=== PATIENT | male | born 1970 | race Caucasian/White ===

== ENCOUNTER 2019-10-15 20:46 | Observation (INO) | payer OTHER, SELFPAY ==
--- NOTE | ~2019-10-15 | XR_ITS ---
EXAMINATION: XR chest 2V DATE: 10/15/2019 21:36 INDICATION: Left-sided chest pain TECHNIQUE: PA and lateral views of the chest are obtained. COMPARISON: None available FINDINGS: The lungs are free of acute opacities. There is no pleural effusion or pneumothorax. The ca rdiomediastinal silhouette is normal. The visualized bones and soft tissues are unremarkable. IMPRESSION: 1. No acute cardiopulmonary abnormality. Reviewed, dictated and finalized at location A.
[2019-10-15 20:57] VITALS: BP 179/97; PULSE 72; RESP 16; TEMP 36.1; O2SAT 99
--- NOTE | 2019-10-15 21:10 | ED.CHESTPAIN ---
HPI - Chest Pain General Chief Complaint: Chest Pain Stated Complaint: CP Time Seen by Provider: 10/15/19 20:52 Source: patient Mode of arrival: ambulatory Limitations: no limitations History of Present Illness HPI narrative: Pt is a 48 y/o male who presents to the ED with c/o sudden onset, intermittent, lt chest pain that started last night. Pt states that last night he started having lt shoulder blade pain so he put on his tens unit that temporarily relieved his pain and then his pain started radiating to his lt arm and lt chest. He notes that he started getting SOB and he felt like he could not catch his breath. He states that the pain lasted for 30-45 minutes. His pain was alleviated when he got up and was pacing around and his pain was aggravated when he laid down. He also states that his lt arm pain worsened with movement. Tonight his lt CP started about an hour ago and it lasted for 30 minutes. He reports breathing heavy, but denies chills, sweats, or a cough. He states that he took Tylenol PM last night and Advil today at lunch. Pt denies recent long travel, H/o blood clots, or H/o [place]. He also denies a FHx of heart disease. 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 He notes that work has been stressful for the last couple of months. MD complaint: chest pain Onset (ago): day(s) (last night) Timing of current episode: episodic Onset: during rest Pain location: left chest Pain radiation: left arm Relieving factors: movement Exacerbating factors: other (rest) Associated symptoms: dyspnea Related Data Home Medications Medication Instructions Recorded Confirmed No Home Medications 10/15/19 10/15/19 Allergies Allergy/AdvReac Type Severity Reaction Status Date / Time No Known Allergies Allergy Verified 10/16/19 00:11 Review of Systems Review of Systems: All systems reviewed & are unremarkable except as noted in HPI and below Constitutional: Constitutional: Denies chills, Reports fever(s) and Denies other (sweats) Cardiovascular: Cardiovascular: Reports chest pain (lt) Respiratory: Respiratory: Denies cough and Reports dyspnea Musculoskeletal: Musculoskeletal: Reports other (lt shoulder blade pain, lt arm pain) Psychiatric: Psychiatric: Reports other (stressed from work) [facility] Past Medical History Medical History (Updated 10/16/19 @ 04:32 by Tien Pearce MD) HLD (hyperlipidemia) Surgical History Surgical History (Updated 10/15/19 @ 21:26 by Krysten Gonzalez) H/O colonoscopy H/O hernia repair Family History Family History (Updated 10/16/19 @ 00:25 by aDnna Galloway, MICHELLE) Father Colon cancer Social History Social History (Updated 10/15/19 @ 21:26 by Krysten Gonzalez) Years smoked: 8 Smoking status: Former smoker Alcohol intake: current Drinks per week: 5 Substance use: never Agree to blood products: Yes Comments Pt's PCP is Dr. Wiliam Varela Exam Narrative: Exam Narrative: GENERAL: Well-appearing, well-nourished, and in no acute distress. HEAD: Normocephalic, atraumatic. ENT: Mucous membranes moist. No pharyngeal erythema or tonsillar exudate. CHEST: Clear to auscultation. No respiratory distress. HEART: Regular rate and rhythm. No murmur heard. Normal peripheral pulses. ABDOMEN: Soft, nontender, nondistended. Back: No midline tenderness thoracic lumbar spine. Left paraspinal tenderness in between the scapula and midline over the rhombus. EXTREMITIES: Normal range of motion. No edema. SKIN: Warm, dry, no rash. NEURO: Alert and oriented x3. Course Consultations Consultation #1: Discussed case with Dr. Wolf, the music rehabilitation therapist. Recommends admission NPO at midnight and serial Troponin checks. Plans to do a stress test tomorrow unless Troponin increases and at that point they will cath him. He does not recommend heparinization unless the Troponin elevates. Date: 10/15/19 Time: 22:45 Vital Signs Vital signs: Vital Signs Temperature
--- NOTE | 2019-10-15 21:20 | ECG_ITS ---
Measurements Intervals [place] Rate: 74 P: 52 [place]: 162 QRS: 0 QRSD: 98 T: 13 QT: 375 QTc: 418 Interpretive Statements SINUS RHYTHM VOLTAGE CRITERIA FOR LVH BORDERLINE ECG Electronically Signed On 10-16-2019 7:05:28 CDT by Tristen Scott D.O.
--- NOTE | 2019-10-15 21:34 | PC.NURSE ---
pt to xray at this time
[2019-10-15] MEDS: KETOROLAC 30 MG/ML VIAL (*BKC) IV PUSH (21:46)
[2019-10-15 21:49] LABS: Basophils Percent Auto 0.4 % (0.2-1.2); Eosinophils Percent Auto 0.5 % (0-4.4); Hematocrit 39.7 % (42.0-52.0); Immature Granulocyte Absolute 0.01 K/mm3 (0.00-0.031); Immature Granulocyte Percent A 0.2 % (0-0.5); Lymphocytes Percent Auto 21.2 % (18.3-44.2); Mean Corpuscular HGB Conc 35.3 g/dl (32-36); Mean Corpuscular Hemoglobin 31.9 pg (26-34); Mean Corpuscular Volume 90.4 fl (80-100); Mean Platelet Volume 9.5 fl (7.4-10.4); Monocytes Absolute Auto 0.3 K/mm3 (0.1-0.6); Monocytes Percent Auto 5.7 % (2.6-8.5); Neutrophils Absolute Auto 4.1 K/mm3 (1.3-6.7); Platelet Count Result 242 k/mm3 (150-375); Red Blood Count 4.39 M/mm3 (4.6-6.20); Red Cell Distribution Width 12.7 % (11.5-14.5); White Blood Count 5.7 K/mm3 (4.5-10.0)
[2019-10-15 21:55] VITALS: BP 144/82; PULSE 70; RESP 16; O2SAT 98
[2019-10-15 21:58] LABS: Prothrombin Time 12.7 Seconds (11.1-14.7)
[2019-10-15 21:59] LABS: Partial Thromboplastin Time 26.7 SECONDS (22.3-36.8)
[2019-10-15 22:00] LABS: Blood Urea Nitrogen 14 mg/dL (9-20); Calcium 8.9 mg/dL (8.4-10.2); Carbon Dioxide 27 mmol/L (22-30); Chloride 105 mmol/L (98-107); Estimated CRCL calculation 78 ml/min; Estimated Glomerular Filt Rate > 60; Glucose 146 mg/dL (75-110); Potassium 3.8 mmol/L (3.4-5.0); Sodium 137 mmol/L (137-145)
[2019-10-15 22:14] LABS: Troponin I 0.041 ng/mL (0.000-0.034)
[2019-10-15 22:48] VITALS: BP 137/77; PULSE 70; RESP 15; O2SAT 98
[2019-10-15 23:41] VITALS: BP 143/81; PULSE 66; RESP 16; O2SAT 99
[2019-10-15 23:55] VITALS: BP 149/76; PULSE 60; RESP 18; TEMP 36.3; O2SAT 95; BMI 28.5
--- NOTE | 2019-10-15 23:55 | ADMGEN ---
This patient, Nacho Soto, was admitted to IMU Room 200-01. Patient/family oriented to hospital policies and general routines including ID bracelet, bed and alarms, visiting hours, pain management, procedures, bathroom and other care routines, personal items, smoking policy, room service/diet, and visiting hours. Valuables list has been completed. Information on how to activate the Rapid Response Team has been discussed. Patient/Family are encouraged to report perceived risks to care and to ask questions if they do not understand what they are told or what they should do.
[2019-10-16] VITALS (20 sets, daily range): BP systolic 126–151; BP diastolic 77–98; PULSE 55–78; RESP 10–18; TEMP 36.1–36.6; O2SAT 96–100
[2019-10-16 01:25] LABS: Troponin I 0.058 ng/mL (0.000-0.034)
[2019-10-16 05:29] LABS: Troponin I 0.052 ng/mL (0.000-0.034)
--- NOTE | 2019-10-16 09:00 | EST_ITS ---
Patient Info Name: Nacho Soto Age: 48 years : 1970 Gender: Male Ht: 66 in Wt: 169 lbs BSA: 1.91 m2 Exam Date: 10/16/2019 10:14 AM Exam Location: [facility] Pulmonary Patient Status: Outpatient Admit Date: 10/15/2019 Staff Ordering Physician: Leslie Wolf MD (sherrie/teresa) Medical Records Auditor: Leonardo Carter RDCS RT Attending Provider: dr. wolf Exercise Technologist: Leonardo Carter RDCS, RT Exam Type: CA stress echo Study Info Indications R07.89 - Other chest pain Treadmill exercise stress echocardiogram is performed. Summary 1. patient exercise on jarod protocol for 10 minutes and 53 second achieving 12 METS Heart rate was 56 at rest and increased to 153 at peak stress which was 86% of max predicted heart rate. BP was 160/92 at rest and increased to 225/79 at peak exercise. EKG showed normal sinus rhythm at rest. At peak exercise EKG showed sinus tachycardia with borderline ST depression in lead II,AVF. At rest 2D echoimages showed normal LV function with EF of 50%. At peak exercise EF improved overall but spetal hypokinesis/dyskinesis noted. Summary: Positive stress test with new wall motion abnomlaity noted in the anterioseptal wall at peak exercise. Exagerrated hypertension response to exercise. Good exercise capacity. Protocol: Jarod Stress ECG Details Stage: REST Duration (min): 15 min : 26 sec Speed (mph): 0.0 Grade (%): 0 HR (bpm): 58 SBP (mmHg): 149 DBP (mmHg): 92 METS: --- Stage: REST Duration (min): 31 min : 21 sec Speed (mph): 0.0 Grade (%): 0 HR (bpm): 74 SBP (mmHg): 149 DBP (mmHg): 92 METS: --- Stage: STAGE 1 Duration (min): 1 min : 0 sec Speed (mph): 1.7 Grade (%): 10 HR (bpm): 90 SBP (mmHg): 149 DBP (mmHg): 92 METS: --- Stage: STAGE 1 Duration (min): 2 min : 0 sec Speed (mph): 1.7 Grade (%): 10 HR (bpm): 99 SBP (mmHg): 149 DBP (mmHg): 92 METS: --- Stage: STAGE 1 Duration (min): 3 min : 0 sec Speed (mph): 1.7 Grade (%): 10 HR (bpm): 101 SBP (mmHg): 160 DBP (mmHg): 92 METS: --- Stage: STAGE 2 Duration (min): 1 min : 0 sec Speed (mph): 2.5 Grade (%): 12 HR (bpm): 112 SBP (mmHg): 160 DBP (mmHg): 92 METS: --- Stage: STAGE 2 Duration (min): 2 min : 0 sec Speed (mph): 2.5 Grade (%): 12 HR (bpm): 110 SBP (mmHg): 164 DBP (mmHg): 92 METS: --- Stage: STAGE 2 Duration (min): 3 min : 0 sec Speed (mph): 2.5 Grade (%): 12 HR (bpm): 118 SBP (mmHg): 164 DBP (mmHg): 92 METS: --- Stage: STAGE 3 Duration (min): 1 min : 0 sec Speed (mph): 3.4 Grade (%): 14 HR (bpm): 125 SBP (mmHg): 204 DBP (mmHg): 69 METS: --- Stage: STAGE 3 Duration (min): 2 min : 0 sec Speed (mph): 3.4 Grade (%): 14 HR (bpm): 135 SBP (mmHg): 204 DBP (mmHg): 69 METS: --- Stage: STAGE 3 Duration (min): 3 min : 0 sec Speed (mph): 3.4 Grade (%): 14 HR (bpm): 136
--- NOTE | 2019-10-16 09:08 | PM.IMHP ---
H&P: HPI History of Present Illness Chief complaint: NSTEMI Narrative: Nacho Soto is a 48 year old male with no cardiac or significant medical history, not on any medications who presented with 2 episodes of chest pain. had episode of chest pain yesterday morning. lasting for 30 minutes, felt like sharp pain to the left side of chest that is worse when he moves his left arm. He had another similar episode last night when decided to seek medical attention. No associated dyspnea or nausea. No dizziness, lightheadedness or syncope. Quit smoking at age 22. Parents alive and healthy/ Review of Systems Review of Systems: All systems reviewed & are unremarkable except as noted in HPI and below Constitutional: Constitutional: Denies fatigue and Denies headache(s) Eyes: Eyes: Denies blurry vision ENT: Reports Normal hearing present and Denies headache(s) Cardiovascular: Cardiovascular: Denies chest pain, Denies diaphoresis, Denies pedal edema, Denies leg edema, Denies lightheadedness, Denies palpitations and Denies dyspnea Respiratory: Respiratory: Denies cough and Denies dyspnea Gastrointestinal: Gastrointestinal: Denies abdominal pain Musculoskeletal: Musculoskeletal: Denies back pain Neurologic: Reports Normal hearing present and Denies headache(s) Psychiatric: Psychiatric: Denies anxiety Endocrine: Endocrine: Denies fatigue and Denies palpitations PMFSH Past Medical History Medical History (Updated 10/16/19 @ 10:21 by Leslie Wolf MD) HLD (hyperlipidemia) Surgical History Surgical History (Updated 10/15/19 @ 21:26 by Krysten Gonzalez) H/O colonoscopy H/O hernia repair Family History Family History (Updated 10/16/19 @ 00:25 by Danna Galloway RN) Father Colon cancer Social History Social History (Updated 10/15/19 @ 21:26 by Krysten Gonzalez) Years smoked: 8 Smoking status: Former smoker Alcohol intake: current Drinks per week: 5 Substance use: never Agree to blood products: Yes Meds Home Medications and Allergies Home Medications Medication Instructions Recorded Confirmed Type No Home Medications 10/15/19 10/15/19 History Allergies Allergy/AdvReac Type Severity Reaction Status Date / Time No Known Allergies Allergy Verified 10/16/19 00:11 Vital Signs Vital Signs - 24 hr 10/15/19 20:57 10/15/19 21:55 10/15/19 22:48 Temperature 36.1 C L Pulse Rate 72 70 70 Respiratory Rate 16 16 15 Blood Pressure 179/97 H 144/82 H 137/77 Pulse Oximetry 99 98 98 10/15/19 23:41 10/15/19 23:55 10/16/19 00:00 Temperature 36.3 C L Pulse Rate 66 60 64 Respiratory Rate 16 18 Blood Pressure 143/81 H 149/76 H Pulse Oximetry 99 95 10/16/19 02:00 10/16/19 03:59 10/16/19 04:00 Temperature 36.6 C Pulse Rate 60 58 L 57 L Respiratory Rate 16 Blood Pressure 151/88 H Pulse Oximetry 100 10/16/19 06:00 10/16/19 08:00 Temperature 36.1 C L Pulse Rate 56 L 57 L Respiratory Rate 16 Blood Pressure 151/89 H Pulse Oximetry 99 Exam Const: General: no acute distress Eyes: Sclera: sclerae normal Neck: Neck: no JVD Carotids: no bruits Resp: Effort & Inspection: normal respiratory effort Auscultation: clear to auscultation bilaterally Cardio: Rate: regular rate and not tachycardic Rhythm: regular rhythm Heart sounds: no gallops, no murmurs and no rubs GI: GI Palp: Yes Soft to palpation and No Tenderness to palpation present (GI) Skin: General skin exam: normal color Neuro: Cranial nerves: Yes Normal hearing present Speech: normal speech Extrem: General: normal to inspection and no edema Psych: Affect: normal affect H&P: Results Labs Labs: Short CBC 10/15/19 Range/Units 21:44 WBC 5.7 (4.5-10.0) K/mm3 Hgb 14.0 (14.0-18.0) g/dL Hct 39.7 L (42.0-52.0) % Plt Count 242 (150-375) k/mm3 BMP 10/15/19 21:44 Sodium 137 Potassium 3.8 Chloride 105 Carbon Dioxide 27 BUN 14 Creatinine 0.9
--- NOTE | 2019-10-16 13:06 | WPDMODSED ---
Moderate Sedation Note-Pt Data Patient Data Allergies Allergy/AdvReac Type Severity Reaction Status Date / Time No Known Allergies Allergy Verified 10/16/19 00:11 Home Medications Medication Instructions Recorded Confirmed Type No Home Medications 10/15/19 10/15/19 History Current Medications: Active Medications Acetaminophen (Tylenol Tablet) 650 mg PO Q4H PRN PRN Reason: Mild Pain (1-3) or Fever Hydrocodone Bitart/Acetaminophen ([place] 5-325 Mg) 1 tab PO Q4H PRN PRN Reason: Pain Rated 4-6 Morphine Sulfate (Morphine Sulfate Inj) 4 mg IV PUSH Q2H PRN PRN Reason: Pain Rated 7-10 Nitroglycerin (Nitrostat Subl 0.4 Mg (1/150)) 0.4 mg SUBLINGUAL Q5MIN PRN PRN Reason: Chest Pain Ondansetron HCl (Zofran Inj) 4 mg IV PUSH Q4H PRN PRN Reason: Nausea Sedation/Anesthesia: No previous sedation/anesthesia problems (including family history). PMFSH Past Medical History Medical History (Updated 10/16/19 @ 10:21 by Leslie Wolf MD) HLD (hyperlipidemia) Surgical History Surgical History (Updated 10/15/19 @ 21:26 by Krysten Gonzalez) H/O colonoscopy H/O hernia repair Family History Family History (Updated 10/16/19 @ 00:25 by Danna Galloway RN) Father Colon cancer Social History Social History (Updated 10/15/19 @ 21:26 by Krysten Gonzalez) Years smoked: 8 Smoking status: Former smoker Alcohol intake: current Drinks per week: 5 Substance use: never Agree to blood products: Yes Mod Sed Physical Exam Physical Exam Pre Procedural Exam: Normal: Appearance, Eyes, Ears, Nose, Neck, Throat, Airway, Lungs, Heart Size, Heart Rate, Heart Rhythm, Neuro Exam, Abdomen, Liver, Kidneys, Spleen, Breasts, Genitalia, Extremities and Skin Hours since solid foods: 8 Hours since liquid intake: 8 Internal Medicine - PN: Obj Da Vital Signs Vital Signs: Vital Signs - 24 hr 10/15/19 20:57 10/15/19 21:55 10/15/19 22:48 Temperature 36.1 C L Pulse Rate 72 70 70 Respiratory Rate 16 16 15 Blood Pressure 179/97 H 144/82 H 137/77 Pulse Oximetry 99 98 98 10/15/19 23:41 10/15/19 23:55 10/16/19 00:00 Temperature 36.3 C L Pulse Rate 66 60 64 Respiratory Rate 16 18 Blood Pressure 143/81 H 149/76 H Pulse Oximetry 99 95 10/16/19 02:00 10/16/19 03:59 10/16/19 04:00 Temperature 36.6 C Pulse Rate 60 58 L 57 L Respiratory Rate 16 Blood Pressure 151/88 H Pulse Oximetry 100 10/16/19 06:00 10/16/19 08:00 10/16/19 10:00 Temperature 36.1 C L Pulse Rate 56 L 57 L 60 Respiratory Rate 16 Blood Pressure 151/89 H Pulse Oximetry 99 10/16/19 12:00 Temperature 36.2 C L Pulse Rate 67 Respiratory Rate 16 Blood Pressure 145/87 H Pulse Oximetry 99 Intake/Output Intake/Output: Intake & Output 10/13/19 10/14/19 10/15/19 10/16/19 23:59 23:59 23:59 23:59 Output Total 450 Balance -450 Meds/Results Medications: Active Medications Generic Name Dose Route Start Last Admin Trade Name Freq PRN Reason Stop Dose Admin Acetaminophen 650 mg 10/15/19 22:48 Tylenol Tablet PO Q4H PRN Mild Pain (1-3) or Fever Hydrocodone Bitart/Acetaminophen 1 tab 10/15/19 22:48 [place] 5-325 Mg PO Q4H PRN Pain Rated 4-6 Morphine Sulfate 4 mg 10/15/19 22:48 Morphine Sulfate Inj IV PUSH Q2H PRN Pain Rated 7-10 Nitroglycerin 0.4 mg 10/15/19 22:48 Nitrostat Subl 0.4 Mg (1/150) SUBLINGUAL Q5MIN PRN Chest Pain Ondansetron HCl 4 mg 10/15/19 22:48 Zofran Inj IV PUSH Q4H PRN Nausea Radiology Results: ITS Impressions Chest X-Ray 10/15/19 21:39 IMPRESSION: 1. No acute cardiopulmonary abnormality. Labs CBC & Chem 7: 10/15/19 21:44 10/15/19 21:44 Labs: Laboratory Results - last 24 hr 10/15/19 10/15/19 10/15/19 21:44 21:44 21:44 WBC 5.7 RBC 4.39 L Hgb 14.0 Hct 39.7 L MCV 90.4 MCH 31.9 MCHC 35.3 RDW 12.7 Plt Count 242
--- NOTE | 2019-10-16 14:05 | P.PCNCC_ITS ---
Cardiac Cath Procedure Note Date of procedure:: 10/16/19 Performing physician:: Jamey Sosa MD Procedure: 1. Left heart catheterization, selective coronary angiogram. 2. Left ventricular angiogram. 3. Angio-Seal device application for arterial hemostasis 4. Conscious sedation, starting time is 1:16 p.m. ending time is 1:38 p.m. Account Associate: Dr. Jamey Sosa Complications: None. Sedation: Conscious sedation, local anesthesia, using 1 mg of Versed said, 25 mcg of fentanyl, and using 1% lidocaine for local anesthesia. Technique: After informed consent was obtained from patient, was brought to the clinical laboratory service teacher, put in the clinical laboratory service teacher table, prepped and draped in usual sterile fashion. Five Cymro sheath was inserted into the right common femoral artery, through the sheath 5 Cymro JL4 catheter inserted, advanced to the left coronary artery, left coronary artery angiogram was obtained. The catheter was exchanged over guidewire into a 5 Cymro JR4 catheter, advanced to the right coronary artery, right coronary artery angiogram was obtained. The catheter then was exchanged over guidewire into this 5 Cymro pigtail catheter, advanced to left ventricle, left ventricular angiogram was obtained. The catheter then was pulled, the sheath was pulled applying manual pressure for arterial hemostasis. Patient tolerated the procedure no complication, taken from the clinical laboratory service teacher to his room in stable condition stable vital signs. Hemodynamics: aortic pressure 124/60 . LV pressure 124/04 with LVEDP of 24 mmHg Angiographic findings: Left main: Medium size artery no significant disease or stenosis. Lad medium size artery showed mid LAD 50-60% narrowing, with 1st diagonal branch is a large caliber vessel with ostial 90% disease followed by bifurcation 90% lesions Left circumflex artery, medium size artery, mid circumflex 60% disease, there is AV circ which is small branch disease but has 90% ostial disease RCA: Dominant vessel showed mid RCA 99% discrete lesion LV: Normal size left ventricle with normal left ventricular systolic function. Summary: Three-vessel complex coronary disease with disease of the LAD circumflex and RCA, with normal left ventricular systolic function Recommendation: Due to the complexity of the lesions in the LAD, and the lesion in the RCA he will benefit from coronary bypass surgery with LOPEZ to LAD saphenous venous graft to diagonal 1 and its branch, venous graft to obtuse marginal, AV circ and venous graft to distal RCA.
--- NOTE | 2019-10-16 14:55 | PM.DS ---
DS: Diagnosis Admitting Diagnosis Admitting Diagnosis: Non ST-elevation myocardial infarction Coronary artery disease Discharge Diagnosis (1) Chest pain: Code(s): R07.9 - Chest pain, unspecified Status: Acute Assessment and Plan: He underwent cardiac catheterization with 3 vessel coronary disease, he will be transferred to [facility] for coronary bypass surgery DS: Summary Time Spent with Patient Time attestation: Total time spent providing and/or coordinating discharge services: Exam Const: General: no acute distress Eyes: Sclera: sclerae normal Neck: Neck: no JVD Carotids: no bruits Resp: Effort & Inspection: normal respiratory effort Auscultation: clear to auscultation bilaterally Cardio: Rate: regular rate and not tachycardic Rhythm: regular rhythm Heart sounds: no gallops, no murmurs and no rubs Skin: General skin exam: normal color Neuro: Cranial nerves: Yes Normal hearing present Speech: normal speech Extrem: General: normal to inspection and no edema Psych: Affect: normal affect DS: Data Data Completed and Pending Labs on day of discharge: Labs from last 24 hours 10/16/19 10/16/19 10/15/19 03:49 00:43 21:44 WBC RBC Hgb Hct MCV MCH MCHC RDW Plt Count MPV Immature Gran % (Auto) Neut % (Auto) Lymph % (Auto) [place] % (Auto) Eos % (Auto) Baso % (Auto) Lymph # (Auto) [place] # (Auto) Eos # (Auto) Baso # (Auto) Abs Immat Gran (auto) Absolute Neuts (auto) Absolute Nucleated RBC Nucleated RBC % PT INR APTT Sodium 137 Potassium 3.8 Chloride 105 Carbon Dioxide 27 BUN 14 Creatinine 0.90 Estim Creat Clear Calc 78 Estimated GFR > 60 Glucose 146 H Calcium 8.9 Troponin I 0.052 H* 0.058 H* D 0.041 H* 10/15/19 10/15/19 21:44 21:44 WBC 5.7 RBC 4.39 L Hgb 14.0 Hct 39.7 L MCV 90.4 MCH 31.9 MCHC 35.3 RDW 12.7 Plt Count 242 MPV 9.5 Immature Gran % (Auto) 0.2 Neut % (Auto) 72.0 Lymph % (Auto) 21.2 [place] % (Auto) 5.7 Eos % (Auto) 0.5 Baso % (Auto) 0.4 Lymph # (Auto) 1.20 [place] # (Auto) 0.3 Eos # (Auto) 0.0 Baso # (Auto) 0.0 Abs Immat Gran (auto) 0.01 Absolute Neuts (auto) 4.1 Absolute Nucleated RBC 0.0 Nucleated RBC % 0.0 PT 12.7 INR 1.0 APTT 26.7 Sodium Potassium Chloride Carbon Dioxide BUN Creatinine Estim Creat Clear Calc Estimated GFR Glucose Calcium Troponin I Discharge Plan Discharge Consulting providers: Jamey Sosa Discharging Clinician: Jamey Sosa Patient Disposition: Other Activity: no straining Diet: heart healthy Patient Instructions: Antibiotic Form Stand Alone Forms: General Discharge Information Discharge Medications: Continued No Home Medications RF: 0 Date of admission: 10/15/19 22:48 Primary Care Provider: UNKNOWN,DOCTOR Admitting Provider: Leslie Wolf Attending physician on admission: Leslie Wolf Condition: Stable Quality VTE Prophylaxis VTE prophylaxis: pharmacologic ordered (Currently on Lovenox 1 milligram/kilogram for AFib/RVR.)
[2019-10-16] MEDS: ASPIRIN 325 MG TABLET PO (17:40)
[2019-10-16] MEDS: METOPROLOL SUCCINATE EXT REL 25 MG TABCR PO (17:40)
[2019-10-16] MEDS: ROSUVASTATIN 10 MG TABLET PO (17:40)
[2019-10-16] MEDS: SODIUM CHLORIDE 0.9% IV 1,000 ML 125 ML IV CONT (17:40)
[2019-10-16] MEDS: ACETAMINOPHEN 325 MG TABLET 650 MG PO (17:46)
[2019-10-16 19:09] LABS: Basophils Percent Auto 0.4 % (0.2-1.2); Eosinophils Percent Auto 0.7 % (0-4.4); Hematocrit 37.6 % (42.0-52.0); Hemoglobin 12.9 g/dL (14.0-18.0); Immature Granulocyte Absolute 0.01 K/mm3 (0.00-0.031); Immature Granulocyte Percent A 0.2 % (0-0.5); Lymphocytes Absolute Auto 1.28 K/mm3 (0.9-3.2); Lymphocytes Percent Auto 23.1 % (18.3-44.2); Mean Corpuscular HGB Conc 34.3 g/dl (32-36); Mean Corpuscular Hemoglobin 31.5 pg (26-34); Mean Corpuscular Volume 91.7 fl (80-100); Mean Platelet Volume 9.5 fl (7.4-10.4); Monocytes Absolute Auto 0.4 K/mm3 (0.1-0.6); Monocytes Percent Auto 6.5 % (2.6-8.5); Neutrophils Absolute Auto 3.8 K/mm3 (1.3-6.7); Neutrophils Percent Auto 69.1 % (45.5-73.1); Platelet Count Result 208 k/mm3 (150-375); White Blood Count 5.5 K/mm3 (4.5-10.0)
[2019-10-16 19:17] LABS: INR 1.1; Prothrombin Time 13.5 Seconds (11.1-14.7)
[2019-10-16 19:18] LABS: Partial Thromboplastin Time 27.7 SECONDS (22.3-36.8)
== END 2019-10-16 20:13 | disposition short-term general hospital (02) ==
LOC: ANHED 22:50 → ANHIMU 23:14
PROVIDERS: Admitting Provider Internal Medicine; Emergency Provider Emergency Medicine; Visit Provider Specialist
PROC: 4A023N7 Measurement of Cardiac Sampling and Pressure, Left Heart, Percutaneous Approach (ICD-10-PCS; CPT 93452; principal; 2019-10-16 12:30)
DX: I21.4 Non-ST elevation (NSTEMI) myocardial infarction (principal); I25.10 Atherosclerotic heart disease of native coronary artery without angina pectoris; E78.5 Hyperlipidemia, unspecified; Z87.891 Personal history of nicotine dependence
CPT/HCPCS: 36415; 71046; 80048; 84484; 85025; 85610; 85730; 93005; 93351; 93458; 96360; 96361; 96374; 99285; A9270; C1760; C1887; C1894; G0269; G0378; J1644; J1885; J2250; J3010; J7030; J7040

== ENCOUNTER 2022-06-02 20:22 | Emergency (ER) | payer OTHER, SELFPAY ==
--- NOTE | ~2022-06-02 | XR_ITS ---
EXAMINATION: XR chest 2V Exam Date/Time: 06/02/2022 20:40 CDT HISTORY: cp Comparison: 10/15/2019. RESULT: Lines, tubes, and devices: None. Lungs and pleura: Clear. Cardiomediastinal silhouette: Stable. Other: No acute osseous or upper abdominal finding. IMPRESSION: No acute cardiopulmonary process. Reviewed, dictated and finalized at location K.
--- NOTE | 2022-06-02 20:25 | ECG_ITS ---
Measurements Intervals [place] Rate: 65 P: 31 [place]: 170 QRS: 9 QRSD: 93 T: 23 QT: 392 QTc: 409 Interpretive Statements SINUS RHYTHM BASELINE ARTIFACT- I, III, AVR, AVL, AVF, V1 NORMAL ECG COMPARED TO ECG 10/15/2019 20:53:34 NO SIGNIFICANT CHANGES Electronically Signed On 06-03-2022 6:36:10 CDT by Tristen Scott D.O.
[2022-06-02 20:27] VITALS: BP 132/94; PULSE 67; RESP 16; TEMP 37; O2SAT 98
[2022-06-02 20:33] VITALS: PULSE 68
[2022-06-02 20:53] LABS: Basophils Percent Auto 0.3 % (0.2-1.2); Eosinophils Absolute Auto 0.1 K/mm3 (0-0.3); Hematocrit 41.5 % (42.0-52.0); Hemoglobin 14.2 g/dL (14.0-18.0); Immature Granulocyte Absolute 0.01 K/mm3 (0.00-0.031); Immature Granulocyte Percent A 0.2 % (0-0.5); Immature Platelet Fraction Pct 2.7 % (0.9-11.2); Lymphocytes Absolute Auto 1.41 K/mm3 (0.9-3.2); Lymphocytes Percent Auto 23.2 % (18.3-44.2); Mean Corpuscular HGB Conc 34.2 g/dl (32-36); Mean Corpuscular Hemoglobin 31.9 pg (26-34); Mean Corpuscular Volume 93.3 fl (80-100); Mean Platelet Volume 10.3 fl (7.4-10.4); Monocytes Absolute Auto 0.4 K/mm3 (0.1-0.6); Monocytes Percent Auto 7.1 % (2.6-8.5); Neutrophils Absolute Auto 4.2 K/mm3 (1.3-6.7); Neutrophils Percent Auto 68.2 % (45.5-73.1); Platelet Count Result 280 k/mm3 (150-375); Red Blood Count 4.45 M/mm3 (4.6-6.20); Red Cell Distribution Width 13.2 % (11.5-14.5); White Blood Count 6.1 K/mm3 (4.5-10.0)
[2022-06-02 21:03] LABS: Alanine Aminotransferase 32 U/L (6-50); Albumin Level 4.7 g/dL (3.5-5.1); Alkaline Phosphatase 84 U/L (38-126); Anion Gap 9 mmol/L (8-16); Aspartate Amino Transferase 28 U/L (17-59); Bilirubin,Total 0.5 mg/dL (0.2-1.3); Blood Urea Nitrogen 14 mg/dL (9-20); Calcium 9.1 mg/dL (8.4-10.2); Carbon Dioxide 26 mmol/L (22-30); Chloride 103 mmol/L (98-107); Estimated CRCL calculation 62 ml/min; Estimated Glomerular Filt Rate > 60; Glucose 116 mg/dL (65-110); Lipase 93 U/L (23-300); Potassium 3.9 mmol/L (3.4-5.0); Sodium 138 mmol/L (137-145)
[2022-06-02] MEDS: ASPIRIN 81 MG CHEWABLE TABLET 324 MG PO (21:08)
[2022-06-02 21:15] LABS: Troponin I < 0.012 ng/mL (0.000-0.034)
[2022-06-02 21:16] LABS: INR 1.1; Prothrombin Time 14.1 Seconds (11.1-14.7)
[2022-06-02 21:17] LABS: Partial Thromboplastin Time 28.6 SECONDS (22.3-36.8)
--- NOTE | 2022-06-02 22:21 | ED.CHESTPAIN ---
HPI - Chest Pain General Chief Complaint: Chest Pain Stated Complaint: chest pain Time Seen by Provider: 06/02/22 20:30 History of Present Illness HPI narrative: Patient is a 51-year-old male who comes into the ER with concerns of tingling in his hands bilaterally. Ongoing over the last week. It wakes him up at night. He has felt it going up into his forearms and into his left shoulder. No chest pain or chest pressure but has been concerned about his heart given the fact that he has had a stent previously. Not associated with exertion. No sweats or nausea or vomiting. Patient works in IT. Has not noticed any alleviating factors. Related Data Home Medications Medication Instructions Recorded Confirmed aspirin 81 mg tablet mg PO 06/02/22 losartan 25 mg tablet mg 06/02/22 metoprolol succinate 25 mg mg PO 06/02/22 tablet,extended release 24 hr rosuvastatin 10 mg tablet mg 06/02/22 Allergies Allergy/AdvReac Type Severity Reaction Status Date / Time No Known Allergies Allergy Verified 06/02/22 20:29 Review of Systems Review of Systems: All systems reviewed & are unremarkable except as noted in HPI and below Constitutional: Constitutional: Denies chills, Denies fatigue and Denies fever(s) ENT: Denies nasal congestion and Denies sore throat Cardiovascular: Cardiovascular: Denies chest pain, Denies rapid heart rate and Denies radiating jaw, neck or arm pain Respiratory: Respiratory: Denies cough and Denies dyspnea Gastrointestinal: Gastrointestinal: Denies abdominal pain, Denies nausea and Denies vomiting Musculoskeletal: Musculoskeletal: Denies arthralgias and Denies joint swelling Neurologic: Denies syncope, Denies focal weakness and Reports numbness PMFSH Past Medical History Medical History (Updated 06/03/22 @ 04:21 by Tien Pearce MD) Coronary artery disease H/O: HTN (hypertension) HLD (hyperlipidemia) Surgical History Surgical History (Updated 06/03/22 @ 04:21 by Tien Pearce MD) H/O colonoscopy H/O hernia repair History of heart artery stent Family History Family History (Updated 10/16/19 @ 00:25 by Danna Galloway RN) Father Colon cancer Social History Social History (Updated 10/15/19 @ 21:26 by Krysten Gonzalez) Years smoked: 8 Smoking status: Former smoker Alcohol intake: current Drinks per week: 5 Substance use: never Agree to blood products: Yes Exam Narrative: GENERAL: Well-appearing, well-nourished, and in no acute distress. HEAD: Normocephalic, atraumatic. EYES: PERRL and EOMI. CHEST: Clear to auscultation. No respiratory distress. HEART: Regular rate and rhythm. Normal peripheral pulses. ABDOMEN: Soft, nontender, nondistended. EXTREMITIES: Normal range of motion. No edema. Abdominal compression pulse normal (. SKIN: Warm, dry, no rash. NEURO: Alert and oriented x3. PSYCH: Normal mood and affect. Course Course Emergency Course: Suspect symptoms related to carpal tunnel syndrome. Discussed treatment plan and patient verbalized understanding. Vital Signs Vital signs: Vital Signs Temperature 98.6 F 06/02/22 20:27 Pulse Rate 67 06/02/22 20:27 Respiratory Rate 16 06/02/22 20:27 Blood Pressure 132/94 H 06/02/22 20:27 Pulse Oximetry 98 06/02/22 20:27 Oxygen Delivery Room Air 06/02/22 20:27 Temperature 98.6 F 06/02/22 20:27 Pulse Rate 88 06/02/22 22:48 Respiratory Rate 16 06/02/22 22:48 Blood Pressure 140/66 06/02/22 22:48 Pulse Oximetry 98 06/02/22 22:48 Oxygen Delivery Room Air 06/02/22 20:27 MDM - Chest Pain Lab Data Result diagrams: 06/02/22 20:29 06/02/22 20:29 Labs: Lab Results 06/02/22 06/02/22 06/02/22 Range/Units 20:29 20:29 20:29 WBC 6.1 (4.5-10.0) K/mm3 RBC 4.45 L (4.6-6.20) M/mm3 Hgb 14.2 (14.0-18.0) g/dL Hct 41.5 L (42.0-52.0) % MCV 93.3 (80-100) fl MCH 31.9 (26-34) pg MCHC 34.2 (3
[2022-06-02] MEDS: KETOROLAC 30 MG/ML VIAL (*BKC) IV PUSH (22:42)
[2022-06-02 22:48] VITALS: BP 140/66; PULSE 88; RESP 16; O2SAT 98
== END 2022-06-02 22:51 | disposition home or self-care (01) ==
PROVIDERS: Emergency Provider Emergency Medicine
DX: G56.03 Carpal tunnel syndrome, bilateral upper limbs (principal); I25.10 Atherosclerotic heart disease of native coronary artery without angina pectoris; I10 Essential (primary) hypertension; E78.5 Hyperlipidemia, unspecified; Z95.5 Presence of coronary angioplasty implant and graft; Z79.82 Long term (current) use of aspirin; Z87.891 Personal history of nicotine dependence
CPT/HCPCS: 36415; 71046; 80053; 83690; 84484; 85025; 85055; 85610; 85730; 93005; 96374; 99284; A9270; J1885